=== PATIENT | female | born 1985 | race Caucasian/White ===

== ENCOUNTER 2025-07-28 18:22 | Emergency (ER) | payer OTHER, BC ==
[~2025-07-28] VITALS: Ht 167.6 cm; Wt 133.8 kg
[~2025-07-28 18:22] MED LIST: AMOCLA875 PO; Amoxicillin500 MG PO; MULVITMINE PO
[2025-07-28 18:37] VITALS: BP 125/85
[2025-07-28] MEDS ORDERED: Robaxin750 MG PO (20:31)
== END 2025-07-28 20:40 | disposition home or self-care (01) ==
LOC: ER 18:22
DX: M54.2 Cervicalgia (principal); R51.9 Headache, unspecified; M25.511 Pain in right shoulder; Z79.899 Other long term (current) drug therapy; Z59.89 Other problems related to housing and economic circumstances; V89.2XXA Person injured in unspecified motor-vehicle accident, traffic, initial encounter
CPT/HCPCS: 99283